=== PATIENT | male | born 1985 | race Caucasian/White ===

== ENCOUNTER 2016-05-29 18:20 | Emergency (ER) | payer MEDICAID ==
[~2016-05-29] VITALS: Ht 180.3 cm; Wt 79.4 kg
[2016-05-29 18:41] VITALS: BP_SYST 154
--- NOTE | 2016-05-29 19:42 | NUR ---
Patient to ER bed 2 to gown for evaluation. Side rails up. Report given to CAROL ANN Mcintosh.
--- NOTE | 2016-05-29 19:48 | NUR ---
Pt states around 1830, pt was working outside and he had a spontenous nosebleed. Denies trauma. States he could not control the bleeding. Pt's nosebleed is under control at this time. Will continue to monitor. No other injuries or complaints mentioned/noted. No distress noted.
--- NOTE | 2016-05-29 20:00 | NUR ---
ER Dr. Hussein at bedside examining patient.
--- NOTE | 2016-05-29 20:15 | NUR ---
Sharan abdi in ED - 05/29/16 at 2043 by BARBARA HAWA Hussein at bedside examining patient.
[2016-05-29 20:20] VITALS: BP_SYST 154
--- NOTE | 2016-05-29 20:20 | NUR ---
Patient given written and verbal discharge instructions and verbalizes understanding. ER MD discussed with patient the results and treatment provided. Given copies of tests performed in ER. Patient in stable condition. ID arm band removed. Rx of Afrin given. Patient educated on pain management and to follow up with PMD. Pain Scale 0/10. Opportunity for questions provided and answered.
== END 2016-05-29 20:20 | disposition home or self-care (01) ==
LOC: SED 18:20
DX: R04.0 Epistaxis (principal)
CPT/HCPCS: 99282

== ENCOUNTER 2019-04-24 17:20 | Emergency (ER) | payer SELFPAY ==
[~2019-04-24] VITALS: Ht 177.8 cm; Wt 90.7 kg
[2019-04-24 17:24] VITALS: BP_SYST 146
--- NOTE | 2019-04-24 17:33 | NUR ---
Patient triaged and placed in waiting room. VSS and patient appears in no acute distress at this time. Awaiting available bed, and MD notified of need for MSE.
--- NOTE | 2019-04-24 18:00 | NUR ---
Patient to ER bed H1 to gown for evaluation. Side rails up.
--- NOTE | 2019-04-24 18:05 | NUR ---
ER at bedside examining patient.
[2019-04-24 18:19] VITALS: BP_SYST 146
--- NOTE | 2019-04-24 18:19 | NUR ---
Patient given written and verbal discharge instructions and verbalizes understanding. ER MD discussed with patient the results and treatment provided. Patient in stable condition. ID arm band removed. Rx of NAPROSYN given. Patient educated on pain management and to follow up with PMD. Pain Scale 2 Opportunity for questions provided and answered. Medication side effect fact sheet provided.
== END 2019-04-24 18:19 | disposition home or self-care (01) ==
LOC: SED 17:20
DX: S93.401A Sprain of unspecified ligament of right ankle, initial encounter (principal); F12.90 Cannabis use, unspecified, uncomplicated; W01.0XXA Fall on same level from slipping, tripping and stumbling without subsequent striking against object, initial encounter; Y93.21 Activity, ice skating; Y92.85 Railroad track as the place of occurrence of the external cause; Y99.8 Other external cause status
CPT/HCPCS: 99283

== ENCOUNTER 2019-05-08 14:54 | Emergency (ER) | payer MEDICAID ==
[~2019-05-08] VITALS: Ht 167.6 cm; Wt 72.6 kg
[2019-05-08 15:04] VITALS: BP_SYST 139
--- NOTE | 2019-05-08 15:08 | NUR ---
Patient to ER bed 6 to gown for evaluation. Side rails up. Report given to Mariaelena MAHARAJ.
--- NOTE | 2019-05-08 15:11 | NUR ---
Patient presented to ER C/O right ankle pain. Patient A&Ox4, ambulatory to ER, afebrile, skin pink and warm, right ankle pitting edema +2 & redness, denies N/V/D, pain 09/10. Patient states he fell off skate board x3 weeks ago and seen at [facility] ER x2 weeks ago. Patient states pain and swelling today after work.
--- NOTE | 2019-05-08 15:13 | NUR ---
HAWA Mendoza at bedside examining patient.
[2019-05-08] MEDS ORDERED: KETOROLAC TROMETHAMINE 30 MG VIAL IVP ONE (15:30)
[2019-05-08] MEDS ORDERED: NACL 0.9% 1,000 ML IV ONE (15:30)
--- NOTE | 2019-05-08 15:35 | NUR ---
Radiology staff at bedside for ultrasound
[2019-05-08 15:41] LABS: BASOPHILS # (AUTO) 0.1 K/uL (0.0-0.2); BASOPHILS % (AUTO) 0.7 % (0.0-2.0); EOSINOPHILS # (AUTO) 0.1 K/uL (0.0-0.4); EOSINOPHILS % (AUTO) 1.1 % (0.0-4.0); HEMATOCRIT 41.3 % (36-54); HEMOGLOBIN 14.3 g/dL (14.0-18.0); LYMPHOCYTES # (AUTO) 1.7 K/uL (1.0-5.5); LYMPHOCYTES % (AUTO) 17.1 % (20.5-51.5); MEAN CORPUSCULAR HEMOGLOBIN 31 pg (27-31); MEAN CORPUSCULAR HGB CONC 35 % (32-36); MEAN CORPUSCULAR VOLUME 90 fL (79.0-98.0); MONOCYTES # (AUTO) 0.8 K/uL (0.0-1.0); MONOCYTES % (AUTO) 8.2 % (1.7-9.3); NEUTROPHILS # (AUTO) 7.2 K/uL (1.8-7.7); NEUTROPHILS % (AUTO) 72.9 % (40.0-70.0); PLATELET COUNT (AUTO) 318 K/uL (130-430); RED CELL DISTRIBUTION WIDTH 12.6 % (9.0-15.0); WHITE BLOOD COUNT (AUTO) 9.9 K/uL (4.8-10.8)
[2019-05-08 15:54] LABS: CALCIUM 8.8 mg/dL (8.4-11.0); CREATININE 0.87 mg/dL (0.55-1.30); POTASSIUM 3.8 mmol/L (3.5-5.1)
[2019-05-08 15:59] LABS: ALBUMIN 3.9 g/dL (3.4-4.8); TOTAL BILIRUBIN 0.7 mg/dL (0.0-1.0)
[2019-05-08] MEDS ORDERED: SULFAMETHOXAZOLE/TRIMETHOPR DS 1 TABLET PO ONE (16:30)
--- NOTE | 2019-05-08 16:42 | NUR ---
Patient given written and verbal discharge instructions and verbalizes understanding. ER MD discussed with patient the results and treatment provided. Patient in stable condition. ID arm band removed. IV catheter removed intact and dressing applied, no active bleeding. Rx of BACTRIM given. Patient educated on pain management and to follow up with PMD. Pain Scale . Opportunity for questions provided and answered. Medication side effect fact sheet provided.
== END 2019-05-08 16:42 | disposition home or self-care (01) ==
LOC: SED 14:54
DX: L03.115 Cellulitis of right lower limb (principal); E87.1 Hypo-osmolality and hyponatremia; F12.90 Cannabis use, unspecified, uncomplicated; F15.90 Other stimulant use, unspecified, uncomplicated; F17.200 Nicotine dependence, unspecified, uncomplicated; Z72.89 Other problems related to lifestyle
CPT/HCPCS: 36415; 80053; 83605; 85025; 87040; 93971; 96374; 99284; G0482; J1885; J7030

== ENCOUNTER 2020-10-24 22:39 | Emergency (ER) | payer SELFPAY ==
[~2020-10-24] VITALS: Ht 180.3 cm; Wt 72.6 kg
[2020-10-24 22:50] VITALS: BP_SYST 122
--- NOTE | 2020-10-24 23:11 | NUR ---
Patient to HAWA calzada for evaluation. Side rails up. Report given to Anna MAHARAJ.
--- NOTE | 2020-10-24 23:14 | NUR ---
Patient BIB by family from home. C/O right finger laceration x today. Patient reported, played with sword and accidently cut his hand ~ 20 minutes. A/O,X4, right 4th finger , pain rate 5/10, bleeding control.
--- NOTE | 2020-10-24 23:18 | NUR ---
Clean laceration wound with NSS and Betadine.
[2020-10-24] MEDS ORDERED: LIDOCAINE 1%, 20 ML MDV 20 ML ONE (23:35)
--- NOTE | 2020-10-25 00:04 | NUR ---
ER Dr. Carrasco at bedside examining patient.
--- NOTE | 2020-10-25 00:12 | NUR ---
Patient has a 2.5 cm laceration to right fingers. Dr. Carrasco applied sutures using sterile technique. Edges well approximated. Site cleansed with NSS and Betadine. Dressing of Bacitracin applied to site. No bleeding noted. Pt tolerated well.
[2020-10-25] MEDS ORDERED: DIPH-TET-PERTUS Vaccine 0.5 ML VIAL (ADACEL) I.M. ONE (00:15)
[2020-10-25] MEDS ORDERED: BACITRACIN 1 GM OINT TP ONE (00:34)
[2020-10-25 00:46] VITALS: BP_SYST 122
--- NOTE | 2020-10-25 00:46 | NUR ---
Patient given written and verbal discharge instructions and verbalizes understanding. ER MD discussed with patient the results and treatment provided. Patient in stable condition. ID arm band removed. No Rx given. Patient educated on pain management and to follow up with PMD. Pain Scale 1/10. Opportunity for questions provided and answered.
== END 2020-10-25 00:46 | disposition home or self-care (01) ==
LOC: SED 22:39
DX: S61.214A Laceration without foreign body of right ring finger without damage to nail, initial encounter (principal); Z79.899 Other long term (current) drug therapy; W45.8XXA Other foreign body or object entering through skin, initial encounter; Y93.89 Activity, other specified; Y92.89 Other specified places as the place of occurrence of the external cause; Y99.8 Other external cause status
CPT/HCPCS: 12002; 90471; 90715; 99283; J2001

== ENCOUNTER 2021-07-01 00:02 | Emergency (ER) | payer SELFPAY ==
[~2021-07-01] VITALS: Ht 180.3 cm; Wt 83.9 kg
[2021-07-01 00:15] VITALS: BP_SYST 150
--- NOTE | 2021-07-01 00:17 | NUR ---
Patient to ER bed 6 to gown for evaluation. Side rails up. Report given to Hunter MAHARAJ(sanjeev).
[2021-07-01] MEDS ORDERED: IBUP-1969 PO (01:20)
[2021-07-01] MEDS ORDERED: AUG875 PO (01:20)
[2021-07-01] MEDS ORDERED: BACITRACIN 1 GM OINT TP ONE (01:26)
[2021-07-01] MEDS: AMOXICILLIN/CLAVULANATE POTASSIUM 875 MG TABLET PO ONE (01:32)
[2021-07-01] MEDS: BACITRACIN ZINC 15 GM TOPICAL OINTMENT TP ONE (01:33)
[2021-07-01] MEDS: IBUPROFEN 600 MG TABLET PO ONE (01:33)
[2021-07-01 01:44] VITALS: BP_SYST 136
--- NOTE | 2021-07-01 01:44 | NUR ---
Patient given written and verbal discharge instructions and verbalizes understanding. ER MD discussed with patient the results and treatment provided. Patient in stable condition. ID arm band removed. Rx of augmentin and ibuprofen given. Patient educated on pain management and to follow up with PMD. Pain Scale 0/10 Opportunity for questions provided and answered. Medication side effect fact sheet provided.
== END 2021-07-01 01:44 | disposition home or self-care (01) ==
LOC: SED 00:02
DX: S61.451A Open bite of right hand, initial encounter (principal); S61.452A Open bite of left hand, initial encounter; Z79.899 Other long term (current) drug therapy; W54.0XXA Bitten by dog, initial encounter; Y93.89 Activity, other specified; Y92.89 Other specified places as the place of occurrence of the external cause; Y99.8 Other external cause status
CPT/HCPCS: 99283